=== PATIENT | female | born 1955 | race Caucasian/White ===

== ENCOUNTER 2019-01-21 07:16 | Observation (INO) | payer OTHER ==
[~2019-01-21] VITALS: Ht 177.8 cm; Wt 61.2 kg
[2019-01-21 07:44] VITALS: BP 181/79
[2019-01-21] MEDS ORDERED: LIPITOR40 MG PO (07:53)
[2019-01-21] MEDS ORDERED: BUSPIRONE HCL10 MG PO (07:53)
[2019-01-21] MEDS ORDERED: ASPIR 8181 MG PO (07:53)
[2019-01-21] MEDS ORDERED: ZETIA10 MG PO (07:54)
[2019-01-21] MEDS ORDERED: PLAVIX 75 MG TA75 M1 PO (07:54)
[2019-01-21] MEDS ORDERED: CYMBALTA30 MG PO (07:54)
[2019-01-21] MEDS ORDERED: PEPCID20 MG PO (07:55)
[2019-01-21] MEDS ORDERED: HYDRALAZINE 2525 MG PO (07:56)
[2019-01-21] MEDS ORDERED: TRAMADOL 50 MG50 MG PO (07:57)
[2019-01-21] MEDS ORDERED: NORCO 5-325 TA1 EAC1 PO (07:57)
--- NOTE | 2019-01-21 08:53 | EKG ---
[place] [address] [facility] [place] [address] ELECTROCARDIOGRAM REPORT Name: CORNELIO CASTAÑEDAEN Michelle Room #: REG [facility]#: [id number] Admission: 01/21/19 Attend Phys: Rex Torres MD, Discharge: Date of : 57 Report #: [id number] THIS REPORT FOR: //name// [facility] Test Date: 2019-01-21 Test Time: 07:56:15 Pat Name: ROHAN CASTAÑEDA Department: Room: Gender: F Research Spec: Jef GIPSON : 1955 Requested By: Rex Torres Order Number: [id number] MD: Dorian Mcqueen Measurements Intervals [place] Rate: 64 P: 51 IN: 208 QRS: 4 QRSD: 112 T: 81 QT: 439 QTc: 453 Interpretive Statements Sinus rhythm First-degree AV block LVH with secondary repolarization abnormality No previous ECG available for comparison Electronically Signed On 01-21-2019 8:53:13 CDT by Dorian Mcqueen [email or web address] <ELECTRONICALLY SIGNED> By: Dorian Mcqueen MD, [facility] 01/21/19 0853 D: 08/755 075 Dorian Mcqueen MD, FACC /EPI
[2019-01-21 15:14] VITALS: BP 154/77
[2019-01-21 15:30] VITALS: BP 168/83
--- NOTE | 2019-01-21 20:08 | NUR ---
ASSUMED CARE OF PATIENT AT 1440. PATIENT IS ON BEDREST UNTIL 1740. PATIENT HAS A RIGHT GROIN SITE WHICH IS FREE OF EDEMA, DRAINAGE OR ECCHYMOSIS. PATIENT COMPLIANT WITH BEDREST. HOME MEDS RESTARTED BY MILLY NOLASCO NP. PATIENT UP AND AMBULATED STEADILY TO BATHROOM AFTER END OF BEDREST. RIGHT GROIN SITE REMAINED FREE OF EDEMA, DRAINAGE OR ECCHYMOSIS. PATIENT SLEEPING AT SHIFT CHANGE. PATIENT TO CONTINUE WITH POC.
[2019-01-21 20:35] VITALS: BP 173/69
[2019-01-22 00:35] VITALS: BP 154/62
[2019-01-22 04:45] VITALS: BP 158/59
--- NOTE | 2019-01-22 05:00 | NUR ---
ASSESSMENTS CHARTED. OFF BED REST AT START OF SHIFT. PERMISSION TO RESTART HOME PAIN MEDS PER DR. FLETCHER. PT UP AT YULIET. RIGHT GROIN SITE IS C/D/I/SOFT. PLAN OF CARE IS TO RETURN HOME TODAY. PAIN CHARTED.
[2019-01-22 05:35] LABS: HEMATOCRIT 27.8 % (37.0-47.0); HEMOGLOBIN 9.1 gm/dL (12.0-15.0); MCH 25.9 pg (26.0-34.0); MCHC 32.9 g/dL (28.0-37.0); MCV 78.7 fL (80.0-100.0); RBC 3.53 mil/uL (4.20-5.00); RDW 14.7 % (10.5-14.5); WBC 6.5 thou/uL (4.0-11.0)
[2019-01-22 05:50] LABS: APTT 27.8 Seconds (24.5-32.8); PROTIME 10.5 Seconds (9.3-11.4)
[2019-01-22 05:58] LABS: CALCIUM 8.4 mg/dL (8.5-10.1); CREATININE 1.8 mg/dL (0.6-1.0); POTASSIUM 4.4 mmol/L (3.5-5.1); TROPONIN-I 0.19 ng/mL (<0.06)
[2019-01-22 08:00] VITALS: BP 156/73
[2019-01-22] MEDS ORDERED: NORVASC5 MG PO (08:06)
[2019-01-22 09:16] VITALS: BP 156/73
--- NOTE | 2019-01-22 10:03 | NUR ---
PT ALERT AND ORIENTED TIMES FOUR. VSS, SR ON TELE. PT C/O PAIN PRN PAIN MEDICATIONS GIVEN WITH SOME RELEIF. PT DENIES SOA. PT UP AB YULIET WITH STEADY GAIT. PT PROGRESSING TOWRADS POC GOALS.
--- NOTE | 2019-01-22 18:54 | CATHLAB ---
[facility] [employer] [place] [address] INVASIVE PROCEDURE REPORT Name: ROHAN CASTAÑEDA Room #: 206-P [facility] IN [facility]#: [id number] Admission: 01/21/19 Attend Phys: Rex Torres, Discharge: 01/22/19 Date of : 57 Date of Service: 01/22/19 1854 Report #: [id number] THIS REPORT FOR: //name// APPROVED REPORT Study performed: 01/21/2019 13:16:30 Patient Details The patient is a 63 year-old female Event Personnel Rex Torres Manager Pet,, Lorenza Rosado RN RN, Angel Ulrich RTR Scrub, Elizabeth Portillo RTR, [employer] Monitor, Constantino Stock set up / operator Performed Coronary Angiography Only [id number] CORANG Hemostasis w/ Mynx, , PTCA with Balloon Angioplasty Indication Chest pain Procedure Narrative A SHEATH BRITE-TIP 6F X 11CM ([id number]) sheath was inserted into the RFA^. Coronary angiography was performed using coronary diagnostic catheters. The right coronary system was accessed and visualized with a JR4 catheter. The left coronary system was accessed and visualized with a JL4 catheter. The patient tolerated the procedure well and there were no complications associated with the procedure. Intraoperative Conscious Sedation Sedation start time: 1343 Case end Time: 1414 Fentanyl 300 mcg Versed 5 mg Fluoro Time: 20.43 minutes Dose: DAP 609291.30 cGycm2 2049 mGy Contrast Type and Amount: Visipaque 115 ml Hemodynamics The aortic pressure is 181/82 mmHg with a mean of 116 mmHg. PCI Technique Lesion Percutaneous coronary intervention was performed on the Distal RCA. A LAUNCHER 6FR JR 4 #[id number] Guide Catheter was used to engage the [facility] [place] [address] INVASIVE PROCEDURE REPORT Name: ROHAN CASTAÑEDA Room #: 206-[facility]..#: [id number] Admission: 01/21/19 Attend Phys: Rex Torres, Discharge: 01/22/19 Date of : 57 Date of Service: 01/22/19 1854 Report #: [id number] ostium. A Luge Wire .014 x 182CM #[id number] Interventional Guidewire was used to cross the lesion. BALLOON DILATION A Balloon catheter Sprinter OTW 2.5 x 20 #[id number] was inserted and inflated up to 10atm for 34seconds. POST STENT DEPLOYMENT BALLOON DILATION A Balloon catheter TREK NC OTW 2.75 X 15 #[id number] was inserted and inflated up to 18atm for 36seconds. Additional Inflation: 16atm for 48seconds. Additional Inflation: 18atm for 27seconds. Additional inflation @ 18ATM for 23sec PCI Technique Lesion 2 Percutaneous Coronary Intervention was performed on the Distal right coronary artery. A LAUNCHER 6FR JR 4 #[id number] Guide Catheter was used to engage the ostium. A Luge Wire .014 x 182CM #[id number] Interventional Guidewire was used to cross the lesion. Balloon Dilation A Balloon catheter TREK NC OTW 2.75 X 15 #[id number] was inserted and inflated up to 20atm for 29seconds. PCI Technique Lesion 3 Percutaneous Coronary Intervention was performed on the mid right coronary artery. Conclusion #1 successful PTCA of a previously full metal jacket dominant RCA with high-grade restenosis in the distal aspect and mid distal aspects of prior stents. 2.75 noncompliant balloon to 20 marilyn yielding essentially 0% residual and NIKOLAI grade 3 flow throughout this dominant system. No additional stenting was performed this was post in-stent restenosis angioplasty only #2 left main no significant occlusive disease #3 LAD extends from apex mild irregularity mid vessel no occlusive disease #4 circumflex OM nondominant with mild irregularity Recommendations and plan: Continue aggressive risk factor modification. Patient had renal stents see Dr. Avilez's dictation [address] [address] INVASIVE PROCEDURE REPORT Name: ROHAN CASTAÑEDA Room #: 206-P [facility] IN .R.#: [id number] Admission: 01/21/19 Attend Phys: Rex Torres, Discharge: 01/22/19 Date of : 57 Date of Service: 01/22/19 1854 Report #: [id number] we'll continue with dual antiplatelet therapy however with current anemia may utilized clopidogrel only. <ELECTRONICALLY SIGNED> By: Rex Torres MD, FACC 01/22/191853 53 53 Rex Torres MD, FACC /INF
--- NOTE | 2019-01-23 18:01 | EKG ---
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 : 1955 Requested By: Svitlana Mares Order Number: [id number] MD: Dorian Mcqueen Measurements Intervals [place] Rate: 59 P: 64 CO: 197 QRS: 11 QRSD: 110 T: 85 QT: 448 QTc: 444 Interpretive Statements Sinus rhythm with first-degree AV block Nonspecific ST segment abnormality Compared to ECG 01/21/2019 07:56:15 No significant change was found Electronically Signed On 01-23-2019 18:01:22 CDT by Dorian Mcqueen [email or web address] <ELECTRONICALLY SIGNED> By: Dorian Mcqueen MD, [facility] 01/23/19 1801 0714 Dorian Mcqueen MD, [facility] /EPI
== END 2019-01-22 10:10 | disposition home or self-care (01) ==
LOC: CATH 07:16 → 2N 14:43 → ENTRNSPT 01-22 10:06 → 2N 01-22 10:10 → CMPTRNSPT 01-22 10:11
PROVIDERS: Nurse Practitioner Adult Health; ADMIT Internal Medicine Cardiovascular Disease
DX: I25.10 Atherosclerotic heart disease of native coronary artery without angina pectoris (principal); I70.1 Atherosclerosis of renal artery; E78.5 Hyperlipidemia, unspecified; I12.9 Hypertensive chronic kidney disease with stage 1 through stage 4 chronic kidney disease, or unspecified chronic kidney disease; N18.9 Chronic kidney disease, unspecified; D64.9 Anemia, unspecified; E78.00 Pure hypercholesterolemia, unspecified; Z79.82 Long term (current) use of aspirin; Z79.899 Other long term (current) drug therapy

== ENCOUNTER → 2019-03-17 | Outpatient (CLI) | payer OTHER ==
[2019-03-17] VITALS (7 sets, daily range): BP systolic 130–161; BP diastolic 75–84
[~2019-03-17] VITALS: Ht 177.8 cm; Wt 63.5 kg
[~2019-03-17] MED LIST: ASPIR 8181 MG PO; BUSPIRONE HCL10 MG PO; BUSPIRONE HCL5 MG PO; CYMBALTA30 MG PO; HYDRALAZINE 2525 MG PO; LIPITOR40 MG PO; NORCO 5-325 TA1 EAC1 PO; NORVASC5 MG PO; OMEPRAZOLE40 MG PO; PEPCID20 MG PO; PLAVIX 75 MG TA75 M1 PO; TRAMADOL 50 MG50 MG PO; ZETIA10 MG PO
[2019-03-17 12:24] LABS: HEMATOCRIT 35.7 % (37.0-47.0); HEMOGLOBIN 11.6 gm/dL (12.0-15.0); MCH 25.6 pg (26.0-34.0); MCHC 32.6 g/dL (28.0-37.0); MCV 78.4 fL (80.0-100.0); RBC 4.55 mil/uL (4.20-5.00); RDW 15.2 % (10.5-14.5)
[2019-03-17 12:33] LABS: CALCIUM 9.6 mg/dL (8.5-10.1); CREATININE 2.1 mg/dL (0.6-1.0); POTASSIUM 3.8 mmol/L (3.5-5.1)
== END | disposition home or self-care (01) ==
LOC: CATH 11:48
PROVIDERS: Nuclear Medicine Nuclear Cardiology
DX: I70.213 Atherosclerosis of native arteries of extremities with intermittent claudication, bilateral legs (principal); I70.1 Atherosclerosis of renal artery; I25.10 Atherosclerotic heart disease of native coronary artery without angina pectoris; I12.9 Hypertensive chronic kidney disease with stage 1 through stage 4 chronic kidney disease, or unspecified chronic kidney disease; N18.9 Chronic kidney disease, unspecified; E78.00 Pure hypercholesterolemia, unspecified; G62.9 Polyneuropathy, unspecified; F32.9 Major depressive disorder, single episode, unspecified; F17.210 Nicotine dependence, cigarettes, uncomplicated; Z82.49 Family history of ischemic heart disease and other diseases of the circulatory system; Z79.899 Other long term (current) drug therapy; Z98.890 Other specified postprocedural states

== ENCOUNTER → 2020-03-11 | Outpatient (CLI) | payer OTHER ==
[~2020-03-11] MED LIST changes: +ASA81BEC PO; +ASCORBIC ACID500 M3 PO; +BYSTOLIC10 MG PO; +FAMOTIDINE40 MG PO; +NORVASC 2.5 MG2.5 M1 PO; +SLOW FE142 MG PO; +VITAMIN B12-FO1 EAC1 PO; +WELLBUTRIN 100100 MG PO
== END ==
LOC: SJCVCIMAG 14:04 → SJCVC 14:04
PROVIDERS: ATTEND Internal Medicine Cardiovascular Disease
DX: I65.23 Occlusion and stenosis of bilateral carotid arteries (principal); I70.202 Unspecified atherosclerosis of native arteries of extremities, left leg; R94.31 Abnormal electrocardiogram [ECG] [EKG]; I12.9 Hypertensive chronic kidney disease with stage 1 through stage 4 chronic kidney disease, or unspecified chronic kidney disease; N18.30 Chronic kidney disease, stage 3 unspecified; I70.1 Atherosclerosis of renal artery; I25.10 Atherosclerotic heart disease of native coronary artery without angina pectoris; E78.00 Pure hypercholesterolemia, unspecified; E78.1 Pure hyperglyceridemia; F17.210 Nicotine dependence, cigarettes, uncomplicated; Z96.0 Presence of urogenital implants; Z79.899 Other long term (current) drug therapy

== ENCOUNTER → 2020-03-18 | Outpatient (CLI) | payer OTHER ==
[~2020-03-18] VITALS: Ht 177.8 cm; Wt 63.0 kg
[2020-03-18 07:13] VITALS: BP 138/60
[2020-03-18 07:44] LABS: HEMATOCRIT 27.5 % (37.0-47.0); HEMOGLOBIN 8.8 gm/dL (12.0-15.0); MCH 27.6 pg (26.0-34.0); MCV 86.5 fL (80.0-100.0); RBC 3.17 mil/uL (4.20-5.00); RDW 15.8 % (10.5-14.5); WBC 7.2 thou/uL (4.0-11.0)
[2020-03-18 07:53] LABS: CREATININE 1.9 mg/dL (0.6-1.0); POTASSIUM 4.5 mmol/L (3.5-5.1)
--- NOTE | 2020-03-18 12:17 | EKG ---
[facility] [place] [address] ELECTROCARDIOGRAM REPORT Name: ROHAN CASTAÑEDA Room #: REG [facility]#: [id number] Admission: 03/18/20 Attend Phys: Param Avilez MD Discharge: Date of : 57 Report #: [id number] THIS REPORT FOR: cc: Rohan Mcpherson Karen K. RNP Lundgren, Craig H. 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 : 1955 Requested By: Rex Torres Order Number: [id number] MD: Dorian Mcqueen Measurements Intervals [place] Rate: 48 P: 28 LA: 237 QRS: -2 QRSD: 119 T: 36 QT: 468 QTc: 419 Interpretive Statements Sinus bradycardia Prolonged LA interval Poor R wave progression Compared to ECG 01/22/2019 07:14:35 First degree AV block now present ST segment abnormality is no longer present Electronically Signed On 03-18-2020 12:17:44 CDT by Dorian Mcqueen [email or web address] <ELECTRONICALLY SIGNED> By: Dorian Mcqueen MD, FAC 03/18/20 1217 120 1202 Dorian Mcqueen MD, FAC /EPI
--- NOTE | 2020-03-18 17:40 | CATHLAB ---
[facility] [place] [address] INVASIVE PROCEDURE REPORT Name: ROHAN CASTAÑEDA Room #: REG [facility]#: [id number] Admission: 03/18/20 Attend Phys: Param Avilez MD Discharge: Date of : 57 Report #: [id number] THIS REPORT FOR: cc: Rohan Mcpherson Karen K. RNP Mancuso, Gerald M. MD [facility] ~ APPROVED REPORT Study performed: 03/18/2020 09:29:40 Patient Details Patient Status: Out-Patient Room #: The patient is a 64 year-old female Event Personnel Rex Torres Finance Associate, Ju Metzger RN RN, Kimmy Gutiérrez RN RN, Yvrose Rea Monitor, Elizabeth Portillo Scrub Procedures Performed Left Heart Cath w/or w/o Coronaries [id number] [facility] [address] Initial Mod Sed Same Phys/QHP Gr5y 487552 Hemostasis w/ Mynx 12651 Mod Sed Same Phys/QHP Ea 461008 Indication Chest pain Procedure Narrative A SHEATH BRITE-TIP 6F X 11CM (135884) sheath was inserted into the RFA 6F^. Coronary angiography was performed using coronary diagnostic catheters. The right coronary system was accessed and visualized with a JR4 catheter. The left coronary system was accessed and visualized with a JL4 catheter. The left ventricle was accessed and visualized with a STR PIG catheter. There was no hematoma. Intraoperative Conscious Sedation Sedation start time: 1002 Case end Time: 1030 Fentanyl 50 mcg Versed 0.5 mg Fluoro Time: 17.70 minutes Dose: DAP 56288.55 cGycm2 105 mGy Contrast Type and Amount: Visipaque 68 ml [facility] [employer] [place] [address] INVASIVE PROCEDURE REPORT Name: ROHAN CASTAÑEDA Room #: [facility]#: [id number] Admission: 03/18/20 Attend Phys: Param Avilez, Discharge: Date of : 57 Report #: [id number] Hemodynamics The aortic pressure is 171/61 mmHg with a mean of 77 mmHg. The left ventricular pressure is 162/12 mmHg with a mean of mmHg. The left ventricular end diastolic pressure is 26 mmHg. PCI Technique Lesion Percutaneous coronary intervention was performed on the Right Renal. Conclusion 1. No LV gram was performed due to renal insufficiency. But hemodynamics obtained see above hemodynamics. #2 left main Short mildly disease giving rise to LAD and circumflex. #3 LAD with mild irregularities 3040% eccentric mid vessel no occlusive disease #4 circumflex OM nondominant the circumflex is small caliber and moderately disease after a larger OM takeoff which is widely patent. No indication for intervention. #5 dominant right coronary with multiple previously placed stents essentially full metal jacket subtotally occluded proximal mid and then complete occlusion in the distal RCA. Collaterally filled via the left system. This would not be amenable to intervention. Recommendations and plan: Continue aggressive risk factor modification. Patient had redilatation of renal artery stent. Coronary anatomy remained stable with occlusion of the dominant right but collateralized. Multiple prior interventions. This is best treated medically. <ELECTRONICALLY SIGNED> By: Rex Torres MD, FACC 03/18/201739 39 39 Rex Torres MD, FACC /INF
== END | disposition home or self-care (01) ==
LOC: CAT 06:27 → CATH 06:27 → CAT 11:02
PROVIDERS: ATTEND Nuclear Medicine Nuclear Cardiology
DX: R07.9 Chest pain, unspecified (principal); I25.10 Atherosclerotic heart disease of native coronary artery without angina pectoris; I70.1 Atherosclerosis of renal artery; I12.9 Hypertensive chronic kidney disease with stage 1 through stage 4 chronic kidney disease, or unspecified chronic kidney disease; N18.9 Chronic kidney disease, unspecified; E78.5 Hyperlipidemia, unspecified; E78.00 Pure hypercholesterolemia, unspecified; E78.1 Pure hyperglyceridemia; G62.9 Polyneuropathy, unspecified; F17.210 Nicotine dependence, cigarettes, uncomplicated; Z98.890 Other specified postprocedural states; Z79.899 Other long term (current) drug therapy; Z82.49 Family history of ischemic heart disease and other diseases of the circulatory system

== ENCOUNTER → 2021-01-30 | Outpatient (CLI) | payer OTHER ==
[~2021-01-30] MED LIST changes: +ALLOPURINOL 10100 M1 PO; +TOPROL XL25 MG PO
== END ==
LOC: SJCVCIMAG 11:05 → SJCVC 11:05
PROVIDERS: ATTEND Internal Medicine Cardiovascular Disease
DX: R94.31 Abnormal electrocardiogram [ECG] [EKG] (principal); I65.23 Occlusion and stenosis of bilateral carotid arteries; I70.1 Atherosclerosis of renal artery; I49.9 Cardiac arrhythmia, unspecified; I49.3 Ventricular premature depolarization; I12.9 Hypertensive chronic kidney disease with stage 1 through stage 4 chronic kidney disease, or unspecified chronic kidney disease; N18.30 Chronic kidney disease, stage 3 unspecified; I25.10 Atherosclerotic heart disease of native coronary artery without angina pectoris; I73.9 Peripheral vascular disease, unspecified; K55.1 Chronic vascular disorders of intestine; F17.210 Nicotine dependence, cigarettes, uncomplicated; Z79.899 Other long term (current) drug therapy; Z72.89 Other problems related to lifestyle

== ENCOUNTER → 2021-02-07 | Outpatient (CLI) | payer OTHER ==
[~2021-02-07] VITALS: Ht 177.8 cm; Wt 63.0 kg
[2021-02-07 09:09] LABS: HEMATOCRIT 36.2 % (37.0-47.0); HEMOGLOBIN 11.7 gm/dL (12.0-15.0); MCH 27.9 pg (26.0-34.0); MCHC 32.2 g/dL (28.0-37.0); MCV 86.6 fL (80.0-100.0); RBC 4.18 mil/uL (4.20-5.00); RDW 17.4 % (10.5-14.5)
[2021-02-07 09:12] VITALS: BP 115/72
[2021-02-07 09:15] LABS: CALCIUM 9.3 mg/dL (8.5-10.1); CREATININE 1.9 mg/dL (0.6-1.0); POTASSIUM 4.6 mmol/L (3.5-5.1)
== END | disposition home or self-care (01) ==
LOC: CATH 08:02
PROVIDERS: ATTEND Nuclear Medicine Nuclear Cardiology
DX: I70.1 Atherosclerosis of renal artery (principal); T82.856A Stenosis of peripheral vascular stent, initial encounter; I12.9 Hypertensive chronic kidney disease with stage 1 through stage 4 chronic kidney disease, or unspecified chronic kidney disease; N18.30 Chronic kidney disease, stage 3 unspecified; I25.10 Atherosclerotic heart disease of native coronary artery without angina pectoris; F17.210 Nicotine dependence, cigarettes, uncomplicated; E78.00 Pure hypercholesterolemia, unspecified; Y83.8 Other surgical procedures as the cause of abnormal reaction of the patient, or of later complication, without mention of misadventure at the time of the procedure

== ENCOUNTER → 2021-03-02 | Outpatient (CLI) | payer OTHER | LOC: SJCVCIMAG 08:04 | PROVIDERS: ATTEND Nuclear Medicine Nuclear Cardiology | DX: I65.23 Occlusion and stenosis of bilateral carotid arteries (principal); I70.1 Atherosclerosis of renal artery; I12.9 Hypertensive chronic kidney disease with stage 1 through stage 4 chronic kidney disease, or unspecified chronic kidney disease; N18.30 Chronic kidney disease, stage 3 unspecified; I73.9 Peripheral vascular disease, unspecified; F32.9 Major depressive disorder, single episode, unspecified; F17.210 Nicotine dependence, cigarettes, uncomplicated; Z72.89 Other problems related to lifestyle; Z95.828 Presence of other vascular implants and grafts; Z98.890 Other specified postprocedural states ==

== ENCOUNTER → 2021-03-14 | Outpatient (CLI) | payer OTHER ==
[~2021-03-14] VITALS: Ht 177.8 cm; Wt 63.0 kg
[2021-03-14 11:31] VITALS: BP 136/64
[2021-03-14 11:56] LABS: BASOPHILS 0.6 % (0.0-2.0); EOSINOPHILS 2.3 % (0.0-3.0); HEMATOCRIT 38.3 % (37.0-47.0); HEMOGLOBIN 12.6 gm/dL (12.0-15.0); LYMPHOCYTES 16.7 % (24.0-44.0); MCHC 32.8 g/dL (28.0-37.0); MCV 88.4 fL (80.0-100.0); MONOCYTES 6.9 % (1.0-8.0); PLATELET COUNT 360 thou/uL (150-400); POLYS 73.5 % (36.0-66.0); RBC 4.33 mil/uL (4.20-5.00); RDW 16.3 % (10.5-14.5); WBC 10.9 thou/uL (4.0-11.0)
[2021-03-14 12:10] LABS: CALCIUM 9.3 mg/dL (8.5-10.1); POTASSIUM 3.6 mmol/L (3.5-5.1)
[2021-03-14 15:25] VITALS: BP 134/65
== END | disposition home or self-care (01) ==
LOC: CATH 08:05
PROVIDERS: ATTEND Nuclear Medicine Nuclear Cardiology
DX: I70.211 Atherosclerosis of native arteries of extremities with intermittent claudication, right leg (principal); I70.1 Atherosclerosis of renal artery; M79.604 Pain in right leg; M79.605 Pain in left leg; I12.9 Hypertensive chronic kidney disease with stage 1 through stage 4 chronic kidney disease, or unspecified chronic kidney disease; N18.30 Chronic kidney disease, stage 3 unspecified; I25.10 Atherosclerotic heart disease of native coronary artery without angina pectoris; K86.1 Other chronic pancreatitis; G62.9 Polyneuropathy, unspecified; F32.9 Major depressive disorder, single episode, unspecified; Z98.890 Other specified postprocedural states; Z79.899 Other long term (current) drug therapy; Z90.49 Acquired absence of other specified parts of digestive tract; Z82.49 Family history of ischemic heart disease and other diseases of the circulatory system

== ENCOUNTER → 2021-07-19 | Outpatient (CLI) | payer BC | LOC: SJCVCIMAG 09:09 | PROVIDERS: ATTEND Nuclear Medicine Nuclear Cardiology | DX: I70.202 Unspecified atherosclerosis of native arteries of extremities, left leg (principal) ==